=== PATIENT | male | born 1995 | race Caucasian/White ===

== ENCOUNTER 2022-03-04 07:36 | Emergency (ER) | payer MEDICAID ==
[~2022-03-04] VITALS: Ht 167.6 cm; Wt 109.1 kg
[2022-03-04] MEDS ORDERED: PredniSONE 20 MG TABLET PO ONE (08:30)
[2022-03-04] MEDS ORDERED: PRED-554 PO (08:35)
[2022-03-04] MEDS ORDERED: DIPH25CA85 PO (08:35)
[2022-03-04 08:56] VITALS: BP 133/75
== END 2022-03-04 09:18 | disposition home or self-care (01) ==
LOC: EMS 07:40
DX: T78.40XA Allergy, unspecified, initial encounter (principal); X58.XXXA Exposure to other specified factors, initial encounter
CPT/HCPCS: 99283; J7512